=== PATIENT | female | born 2000 | race Caucasian/White ===

== ENCOUNTER 2022-10-03 00:14 | Emergency (ER) | payer MEDICAID ==
[~2022-10-03] VITALS: Ht 172.7 cm; Wt 68.0 kg
[2022-10-03 00:20] VITALS: BP_SYST 124
[2022-10-03 01:19] LABS: BILIRUBIN,URINE 2+ (NEGATIVE); BLOOD, URINE 1+ (NEGATIVE); CLARITY/URINE CLEAR (CLEAR); COLOR,URINE YELLOW (YELLOW); GLUCOSE,URINE NEGATIVE (NEGATIVE); KETONES,URINE 1+ (NEGATIVE); LEUKOCYTE ESTERASE ,URINE NEGATIVE (NEGATIVE); NITRITE, URINE NEGATIVE (NEGATIVE); PROTEIN URINE TRACE (NEGATIVE); UROBILINOGEN,URINE 0.2 (0.2-1.0)
[2022-10-03 01:24] LABS: BASOPHILS # (AUTO) 0.1 K/uL (0.0-0.2); BASOPHILS % (AUTO) 0.4 % (0.0-2.0); EOSINOPHILS % (AUTO) 0.2 % (0.0-4.0); HEMOGLOBIN 14.3 g/dL (12.0-16.0); LYMPHOCYTES # (AUTO) 0.4 K/uL (1.0-5.5); LYMPHOCYTES % (AUTO) 2.2 % (20.5-51.5); MEAN CORPUSCULAR HEMOGLOBIN 30 pg (27-31); MEAN CORPUSCULAR HGB CONC 33 % (32-36); MEAN CORPUSCULAR VOLUME 91 fL (79.0-98.0); MONOCYTES # (AUTO) 0.9 K/uL (0.0-1.0); NEUTROPHILS # (AUTO) 17.1 K/uL (1.8-7.7); NEUTROPHILS % (AUTO) 92.2 % (40.0-70.0); PLATELET COUNT (AUTO) 322 K/uL (130-430); RED BLOOD CELL COUNT(AUTO) 4.73 MIL/uL (4.2-6.2); WHITE BLOOD COUNT (AUTO) 18.5 K/uL (4.5-11.0)
[2022-10-03 01:36] LABS: CALCIUM 9.5 mg/dL (8.4-11.0); CREATININE 0.91 mg/dL (0.55-1.30)
[2022-10-03 01:37] LABS: BACTERIA,URINE FEW /HPF (None Seen); MUCUS,URINE 1+ /LPF (None Seen); WBC,URINE 0-3 /HPF (0-3)
[2022-10-03 01:42] LABS: ALBUMIN 4.8 g/dL (3.4-4.8); TOTAL BILIRUBIN 1.3 mg/dL (0.0-1.0)
[2022-10-03] MEDS ORDERED: ONDANSETRON HCL 4 MG/2 ML VIAL IVP ONE (02:45)
[2022-10-03] MEDS ORDERED: KETOROLAC TROMETHAMINE 30 MG VIAL IVP ONE (02:45)
[2022-10-03] MEDS ORDERED: NACL 0.9% 1,000 ML IV ONE (02:45)
[2022-10-03] MEDS ORDERED: LOPERAMIDE HCL 2 MG CAPSULE PO ONE (03:00)
[2022-10-03] MEDS ORDERED: SUCR1TAB2 PO (04:13)
[2022-10-03] MEDS ORDERED: FAMO-132 PO (04:13)
[2022-10-03] MEDS ORDERED: SIME125T69 PO (04:13)
[2022-10-03] MEDS ORDERED: ONDA-8 TL (04:13)
[2022-10-03 04:31] VITALS: BP_SYST 128
== END 2022-10-03 04:31 | disposition home or self-care (01) ==
LOC: SED 00:14
DX: A08.4 Viral intestinal infection, unspecified (principal); R11.10 Vomiting, unspecified
CPT/HCPCS: 99284; 96374; 96361; 96375; 80053; 81000; 85025; 36415; J1885; J2405; J7030